=== PATIENT | female | born 1935 | race Caucasian/White ===

== ENCOUNTER 2017-03-20 16:16 | Emergency (ER) | payer OTHER, MEDICARE ==
[~2017-03-20] VITALS: Ht 152.4 cm; Wt 59.0 kg
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
[2017-03-20] MEDS ORDERED: ATENOLOL25 M1 PO (16:30)
[2017-03-20] MEDS ORDERED: ASPIRIN EC81 M1 PO (16:30)
[2017-03-20] MEDS ORDERED: ATORVASTATIN CA40 M1 PO (16:30)
[2017-03-20] MEDS ORDERED: DIAZEPAM5 M1 PO (16:31)
[2017-03-20] MEDS ORDERED: IRBESARTAN300 M1 PO (16:32)
[2017-03-20] MEDS ORDERED: HYDRALAZINE HCL10 M1 PO (16:32)
[2017-03-20] MEDS ORDERED: DILT-XR180 M1 PO (16:32)
[2017-03-20] MEDS ORDERED: POTASSIUM CHLO10 ME4 PO (16:33)
[2017-03-20] MEDS ORDERED: OMEPRAZOLE20 M2 PO (16:33)
[2017-03-20] MEDS ORDERED: TRIAMTERENE-HC1 EAC1 PO (16:33)
[2017-03-20 16:52] LABS: ABSOLUTE BASOPHIL COUNT 0 /CUMM (0.0-0.2); ABSOLUTE EOSINOPHIL COUNT 0 /CUMM (0.0-0.7); ABSOLUTE GRANULOCYTE CT 2.9 /CUMM (1.4-6.5); ABSOLUTE MONOCYTE COUNT 0.5 /CUMM (0.10-0.60); BASOPHIL % 0.6 % (0.0-2.0); EOSINOPHIL % 0.9 % (0-5); GRANULOCYTE % 52.9 % (42.2-75.2); MEAN CORPUSCULAR HGB 28.4 PG (27.0-31.0); MEAN CORPUSCULAR HGB CONC 33.4 G/DL (33.0-37.0); MEAN CORPUSCULAR VOLUME 84.8 FL (81.0-99.0); MEAN PLATELET VOLUME 8.1 FL (7.4-10.4); PLATELET COUNT 227 /CUMM (130-400); RBC DISTRIBUTION WIDTH 13.8 % (11.5-14.5); RED BLOOD CELL CT 4.36 /CUMM (4.20-5.40); WHITE BLOOD CELL COUNT 5.5 /CUMM (4.8-10.8)
--- NOTE | 2017-03-20 17:19 | CT SCAN REPORT ---
EXAMINATION: CT HEAD WITHOUT CONTRAST CLINICAL INFORMATION: Hypertensive urgency COMPARISON: None TECHNIQUE: Contiguous axial imaging was performed from the skull base to vertex without intravenous administration of contrast. No midline shift. There is no mass effect. There is no hemorrhage. Basilar cisterns appear patent. Posterior fossa risk grossly within normal limits. There is no extra-axial collection. There is evidence for atrophy here and scattered white matter ischemic change. IMPRESSION: Atrophy and scattered areas of white matter ischemic change. No midline shift or mass effect or hemorrhage.
[2017-03-20 18:00] VITALS: BP 164/72
[2017-03-20] MEDS ORDERED: ATIVAN0.5 M1 PO (18:00)
== END 2017-03-20 18:13 ==
LOC: ERH 16:16
PROVIDERS: Physician Assistant Medical
DX: R51 Headache (principal)
CPT/HCPCS: 81001; 87086; 93005; 93010; 96374